=== PATIENT | male | born 1985 | race Caucasian/White ===

== ENCOUNTER → 2019-03-11 | Outpatient (CLI) | payer BC ==
--- NOTE | 2019-03-12 15:18 | RADIOLOGY IMAGING REPORT ---
FACILITY: [facility] PATIENT NAME: BOOM AWAN : [id number] MR: [id number] V: [id number] EXAM DATE: [id number] ORDERING PHYSICIAN: CHEVY STAFFORD TECHNOLOGIST: Chad Thorpe RDMS, HO PROCEDURE:US RIGHT BREAST COMPLETE COMPARISON:None. INDICATIONS:Rt. breast nodule/Right breast mass upper outer quadrant of Right breast. AREA SCANNED: The entire Right breast was scanned in addition to the contralateral Left breast in the area of interest at 11:30. FINDINGS: No sonographic abnormality was identified to account for patient's palpable findings. Therefore, clinical follow up recommended. DIAGNOSTIC CATEGORY 1--NEGATIVE. RECOMMENDATIONS: CLINICAL EVALUATION. IMPRESSION: BIRADS 1: Negative. Clinical follow up recommended. Dictated by: Aishwarya Garces M.D. on 03/11/2019 at 17:30 Transcribed by: LUCERO on 03/12/2019 at 13:59 Approved by: Aishwarya Garces M.D. on 03/12/2019 at 15:17 [facility]
== END ==
LOC: US 09:15
PROVIDERS: ATTEND Internal Medicine
DX: N63.10 Unspecified lump in the right breast, unspecified quadrant (principal)